=== PATIENT | female | born 1945 | race Caucasian/White ===

== ENCOUNTER 2021-08-14 11:15 | Outpatient (REF) | payer MEDICARE, SELFPAY ==
--- NOTE | ~2021-08-14 | XR_ITS ---
EXAMINATION: XR SHOULDERS BILATERAL CLINICAL INFORMATION: Pain in unspecified shoulder. COMPARISON: None TECHNIQUE: 3 views were obtained of each shoulder. FINDINGS: LEFT SHOULDER: Bones are diffusely demineralized. Degenerative changes in the imaged upper thoracic spine. Moderate degenerative changes acromioclavicular joint with joint space narrowing and hypertrophic change. Moderate hypertrophic change inferior medial aspect of humeral head. RIGHT SHOULDER: Bones are diffusely demineralized. Moderate degenerative changes acromioclavicular joint with joint space narrowing and hypertrophic change. Moderate hypertrophic change inferior aspect glenohumeral joint. Soft tissue calcification along the superior lateral aspect of the right humeral head. Possible similar tiny calcification along the superior lateral aspect of the left humeral head. XR/XR shoulder RT min 2V IMPRESSION: Degenerative changes bilateral acromioclavicular and glenohumeral joints. Soft tissue calcification along the superior lateral aspect of the right humeral head. Possible similar tiny calcification along the superior lateral aspect of the left humeral head.
--- NOTE | ~2021-08-14 | XR_ITS ---
EXAMINATION: XR SHOULDERS BILATERAL CLINICAL INFORMATION: Pain in unspecified shoulder. COMPARISON: None TECHNIQUE: 3 views were obtained of each shoulder. FINDINGS: LEFT SHOULDER: Bones are diffusely demineralized. Degenerative changes in the imaged upper thoracic spine. Moderate degenerative changes acromioclavicular joint with joint space narrowing and hypertrophic change. Moderate hypertrophic change inferior medial aspect of humeral head. RIGHT SHOULDER: Bones are diffusely demineralized. Moderate degenerative changes acromioclavicular joint with joint space narrowing and hypertrophic change. Moderate hypertrophic change inferior aspect glenohumeral joint. Soft tissue calcification along the superior lateral aspect of the right humeral head. Possible similar tiny calcification along the superior lateral aspect of the left humeral head. XR/XR shoulder LT min 2V IMPRESSION: Degenerative changes bilateral acromioclavicular and glenohumeral joints. Soft tissue calcification along the superior lateral aspect of the right humeral head. Possible similar tiny calcification along the superior lateral aspect of the left humeral head.
== END 2021-08-14 11:16 | disposition home or self-care (01) ==
LOC: HO.HOSX 11:15
PROVIDERS: Visit Provider Orthopaedic Surgery
DX: M75.41 Impingement syndrome of right shoulder (principal); M25.512 Pain in left shoulder
CPT/HCPCS: 20610; 73030; 99202; J1100

== ENCOUNTER 2021-09-28 08:46 | Outpatient (REF) | payer MEDICARE, SELFPAY ==
--- NOTE | ~2021-09-28 | MR_ITS ---
EXAMINATION: MR SHOULDER WITHOUT CONTRAST, RIGHT CLINICAL INFORMATION: Chronic right shoulder pain. Decreased range of motion. COMPARISON: Right shoulder radiographs dated 08/14/2021. TECHNIQUE: MRI of the shoulder without contrast was performed on a high-field scanner. FINDINGS: ROTATOR CUFF: Supraspinatus tendinosis with distal near-complete full-thickness tearing measuring 2.0 x 1.9 cm (AP x ML). There appear to be thin bursal and posterior surface tendon fibers remaining intact. Mild infraspinatus tendinosis with articular surface tearing at the anterior leading edge measuring 0.8 cm in AP dimension. Subscapularis tendinosis with distal articular surface partial tearing. No muscle atrophy or fatty infiltration. BICEPS: Intact. CORACOACROMIAL ARCH: The undersurface of the acromion is flat with tiny subacromial spurs. Moderate acromioclavicular osteoarthritis. LABRUM/CAPSULE: Fluid through the undersurface of the superior biceps anchor consistent with superior labral tearing. Attenuation and irregularity through the superior and posterosuperior labrum. Intact inferior joint capsule. GLENOHUMERAL JOINT/MARROW: Articular cartilage signal heterogeneity with areas of full-thickness loss at the superior humeral head measuring up to 2.3 cm in ML dimension. Prominent marrow edema within the posterosuperior glenoid without an associated fracture line which could represent an osseous contusion. Moderate joint effusion with synovitis. MR/MR shoulder RT wo con IMPRESSION: 1. Supraspinatus tendinosis with near-complete tearing measuring 2.0 x 1.9 cm. Thin bursal and posterior tendon fibers remain intact. Mild infraspinatus tendinosis with partial tearing of the anterior leading edge. Subscapularis tendinosis with distal articular surface partial tearing. 2. Moderate acromioclavicular osteoarthritis with tiny subacromial spurs. 3. Undersurface partial tearing of the superior labrum adjacent to the biceps anchor with degenerative fraying through the superior and posterosuperior labrum. 4. Moderate glenohumeral osteoarthritis with full-thickness articular cartilage loss at the superior humeral head. Moderate joint effusion with synovitis.
== END 2021-09-28 08:47 | disposition home or self-care (01) ==
LOC: HO.MRI 08:46
PROVIDERS: Visit Provider Orthopaedic Surgery
DX: M24.811 Other specific joint derangements of right shoulder, not elsewhere classified (principal)
CPT/HCPCS: 73221

== ENCOUNTER → 2021-10-15 13:48 | Outpatient (BNVA) | payer MEDICARE, SELFPAY | PROVIDERS: Visit Provider Orthopaedic Surgery | DX: M75.101 Unspecified rotator cuff tear or rupture of right shoulder, not specified as traumatic (principal); M19.011 Primary osteoarthritis, right shoulder | CPT/HCPCS: 99212 ==

== ENCOUNTER 2021-11-25 07:00 | Outpatient (RCR) | payer MEDICARE, SELFPAY ==
--- NOTE | 2021-10-22 10:12 | MHC.PT.EP ---
[facility] [place] Office [place] Office [place] Office [address] Charles Giles [address] [phone] F: [phone] F: [phone] F: [phone] F: [phone] Physical Therapy Plan of Care Date of Evaluation: Date of Surgery: NA Diagnosis: R ROTATOR CUFF TEAR, OA R SHOULDER Assessment: Pt IS 76 YO RHD F REFERRED TO PT FROM DR LOMELI WITH R SHLDER RC TEAR (SUPRASPINATUS, SUBSCAPULARIS, LABRUM) AND R SHLDER OA. SURGERY NOT RECOMMENDED. Pt REPORTS HX OF NECK INJURY/SURGERY 30 YRS AGO AND R SHLDER ISSUES FOR ABOUT 10 YRS, REPORTS SOME TROUBLE SLEEPING, USING R ARM FOR OVERHEAD ACTIVITIES AND CYCLING/PICKLEBALL PLAY. PRESENTS WITH DECREASED R SHLDER ROM AND STRENGTH, ANTERIOR HUMERUS POSTURE AND PAIN. SHOULD BENEFIT FROM PT TO ADDRESS THESE ISSUES Frequency and Duration: The patient will be seen 2X/WK X 8 WKS Short Term Goals: 1. INCREASED POSTURE AWARENESS AND AWARENESS SHOULDER CARE 2. 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 DECREASED R SHLDER PAIN AT LEAST 50% WITH ADLS 2. INCREASED R SHLDER ROM 10 DEGREES T/O 3. INCREASED R SHLDER STRENGTH 1/2-1 MM GRADE FOR FLEX AND ABDUCTION 4. INCREASED ACTIVITY LEVEL (CYCLING, PICKLEBALL) 5. IMPROVED SPADI (46/130 SOC) Treatment Plan: Modalities to reduce pain, spasms and effusion. Manual therapy to restore motion and function. Therapeutic exercise to improve strength and flexibility. Neuromuscular re-education for posture and balance. Therapeutic activities to return to functional activities of daily living. Electronically signed by: TAYLER MÉNDEZ PT Please sign and return to therapist. Thank you for your referral.
--- NOTE | 2021-12-09 09:55 | MHC.PT.DC ---
[facility] [place] Office [place] Office [place] Office [address] Charles Giles [address] [phone] F: [phone] F: [phone] F: [phone] F: [phone] Physical Therapy Discharge Report Diagnosis: R ROTATOR CUFF TEAR, OA R SHOULDER Date of Surgery: NA Date of Evaluation: 10/22/21 Date of Discharge: 12/09/21 Treatments to Date: 9 Cancellations to Date: No Shows to Date: Discharge Status: Improved Function Independent with HEP Patient Elected to Stop Discharge Summary: HAS MET MOST PT GOALS. TO SEE DR LOMELI ON TUESDAY. TO MAKE APPT FOR NEXT WEEK WILL CALL TO CX OR CONT PER MD/HOME PROG. CALLED TO DC SELF. OF NOTE, SAW DR LOMELI FOR CORTISONE INJECTIONS (RELIEF IN PAST) Electronically signed by: TAYLER MÉNDEZ PT Please sign and return to therapist. Thank you for your referral.
== END 2021-12-09 09:56 | disposition home or self-care (01) ==
LOC: HO.PTWFD 07:00
PROVIDERS: PCP Internal Medicine; Visit Provider Orthopaedic Surgery
DX: M75.101 Unspecified rotator cuff tear or rupture of right shoulder, not specified as traumatic (principal); M19.011 Primary osteoarthritis, right shoulder
CPT/HCPCS: 97110; 97140; 97162; 97535

== ENCOUNTER → 2021-11-30 12:06 | Outpatient (BNVA) | payer MEDICARE, SELFPAY | PROVIDERS: PCP Internal Medicine; Visit Provider Orthopaedic Surgery | DX: M12.811 Other specific arthropathies, not elsewhere classified, right shoulder (principal); M75.42 Impingement syndrome of left shoulder | CPT/HCPCS: 20610; 99212; J1100 ==